=== PATIENT | male | born 1965 | race Caucasian/White ===

== ENCOUNTER 2016-04-14 10:37 | Outpatient (CLI) | payer OTHER | END 2016-04-14 20:23 | disposition home or self-care (01) | LOC: MLB 10:37 | PROVIDERS: ATTEND Family Medicine Geriatric Medicine | DX: Z13.228 Encounter for screening for other metabolic disorders (principal); M54.40 Lumbago with sciatica, unspecified side; Z13.220 Encounter for screening for lipoid disorders; Z13.0 Encounter for screening for diseases of the blood and blood-forming organs and certain disorders involving the immune mechanism; Z13.29 Encounter for screening for other suspected endocrine disorder ==

== ENCOUNTER 2016-06-05 02:16 | Emergency (ER) | payer OTHER ==
[~2016-06-05] VITALS: Ht 177.8 cm; Wt 76.2 kg
[2016-06-05 02:35] VITALS: BP 151/94
--- NOTE | 2016-06-05 02:49 | NUR ---
PATIENT AMBULATED TO ER OF1.
--- NOTE | 2016-06-05 02:49 | NUR ---
50Y M BIB SELF C/O LEFT EAR PAIN X 3 MONTH; PT STATES HIS EAR HAS BEEN PLUGGED X 3 MONTHS, SO PT GOT EAR IRRIGATION FROM [facility] BUT GOT NO RELIEF HX: NONE SULFA ALLERGIES
--- NOTE | 2016-06-05 02:50 | NUR ---
Patient being evaluated by physician.
--- NOTE | 2016-06-05 03:10 | NUR ---
PATIENT AMBULATED TO ER BED 4.
--- NOTE | 2016-06-05 03:54 | NUR ---
Patient discharged with v/s stable. Written and verbal after care instructions given and explained. Patient verbalized understanding. Ambulatory with steady gait. All questions addressed prior to discharge. Advised to follow up with PMD.
[2016-06-05 03:55] VITALS: BP 148/92
== END 2016-06-05 03:54 | disposition home or self-care (01) ==
LOC: EEVIPCON 02:16 → MED 02:16
DX: H61.22 Impacted cerumen, left ear (principal); R03.0 Elevated blood-pressure reading, without diagnosis of hypertension; Z88.2 Allergy status to sulfonamides; Z88.8 Allergy status to other drugs, medicaments and biological substances

== ENCOUNTER 2016-10-05 12:09 | Outpatient (CLI) | payer OTHER ==
[2016-10-05 13:01] LABS: ALBUMIN 4.1 g/dL (3.4-5.0); ANION GAP 13.5 (8-16); CARBON DIOXIDE 23.8 mmol/L (21-32); CHOL/HDL RATIO 3.7 (1-4.5); CREATININE 0.8 mg/dL (0.7-1.3); POTASSIUM 4.3 mmol/L (3.5-5.1); TOTAL BILIRUBIN 0.6 mg/dL (0.0-1.0)
== END 2016-10-05 21:22 | disposition home or self-care (01) ==
LOC: MLB 12:09
PROVIDERS: ATTEND Family Medicine Geriatric Medicine
DX: E78.00 Pure hypercholesterolemia, unspecified (principal); Z80.42 Family history of malignant neoplasm of prostate
CPT/HCPCS: 36415; 80053; 84154

== ENCOUNTER 2016-12-09 11:04 | Outpatient (CLI) | payer OTHER | END 2016-12-09 19:23 | disposition home or self-care (01) | LOC: MLB 11:04 | DX: S62.611D Displaced fracture of proximal phalanx of left index finger, subsequent encounter for fracture with routine healing (principal); X58.XXXD Exposure to other specified factors, subsequent encounter | CPT/HCPCS: 73140 ==

== ENCOUNTER 2017-11-25 10:27 | Outpatient (CLI) | payer OTHER ==
[2017-11-25 10:56] LABS: APPEARANCE,URINE CLEAR (CLEAR); BASOPHILS # (AUTO) 0.1 K/uL (0.00-0.22); BASOPHILS % (AUTO) 2.4 % (0.0-2.0); COLOR,URINE YELLOW (YELLOW); EOSINOPHILS # (AUTO) 0.1 K/uL (0-0.4); EOSINOPHILS % (AUTO) 1.5 % (0.0-4.0); HEMATOCRIT 42.4 % (36-52); HEMOGLOBIN 14.1 g/dL (12.0-18.0); LYMPHOCYTES # (AUTO) 1.6 K/uL (2.0-11.5); LYMPHOCYTES % (AUTO) 40.2 % (20.5-51.1); MEAN CORPUSCULAR HEMOGLOBIN 29 pg (27-31); MEAN CORPUSCULAR HGB CONC 33 g/dL (33-37); MEAN CORPUSCULAR VOLUME 86.9 fL (80-94); MONOCYTES # (AUTO) 0.4 K/uL (0.8-1.0); MONOCYTES % (AUTO) 9.2 % (1.7-9.3); NEUTROPHILS # (AUTO) 1.9 K/uL (1.8-7.7); NEUTROPHILS % (AUTO) 46.7 % (42.2-75.2); PLATELET COUNT (AUTO) 177 K/uL (140-450); RED BLOOD CELL COUNT(AUTO) 4.88 MIL/uL (4.20-6.10); RED CELL DISTRIBUTION WIDTH 14.9 % (11.6-13.7); WHITE BLOOD COUNT (AUTO) 4.1 K/uL (4.8-10.8)
[2017-11-25 10:57] LABS: BILIRUBIN,URINE NEGATIVE (NEGATIVE); BLOOD, URINE NEGATIVE (NEGATIVE); LEUKOCYTE ESTERASE ,URINE NEGATIVE (NEGATIVE); NITRITE, URINE NEGATIVE (NEGATIVE); UGLUCOSE NEGATIVE (NEGATIVE)
[2017-11-25 11:23] LABS: ALBUMIN 4.2 g/dL (3.4-5.0); ANION GAP 13.4 (8-16); CARBON DIOXIDE 28.2 mmol/L (21-32); CHOL/HDL RATIO 3.2 (1-4.5); CREATININE 0.9 mg/dL (0.7-1.3); FREE T4 (FREE THYROXINE) 1.2 ng/dL (0.76-1.46); POTASSIUM 3.6 mmol/L (3.5-5.1); THYROID STIMULATING HORMONE 2.62 uIU/mL (0.34-3.74); TOTAL BILIRUBIN 0.7 mg/dL (0.0-1.0)
== END 2017-11-25 21:08 | disposition home or self-care (01) ==
LOC: MLB 10:27
PROVIDERS: ATTEND Family Medicine Geriatric Medicine
DX: Z13.29 Encounter for screening for other suspected endocrine disorder (principal); Z13.228 Encounter for screening for other metabolic disorders; Z13.0 Encounter for screening for diseases of the blood and blood-forming organs and certain disorders involving the immune mechanism; E78.00 Pure hypercholesterolemia, unspecified; Z88.2 Allergy status to sulfonamides; Z88.8 Allergy status to other drugs, medicaments and biological substances
CPT/HCPCS: 36415; 80053; 81003; 82306; 83036; 84154; 84439; 84443; 85025

== ENCOUNTER 2018-07-15 08:14 | Emergency (ER) | payer OTHER ==
[~2018-07-15] VITALS: Ht 177.8 cm; Wt 74.8 kg
[2018-07-15 08:32] VITALS: BP 135/70
--- NOTE | 2018-07-15 08:45 | NUR ---
BIB SELF. AAO X4 PT C/O SWELLING AND ACHING ABOVE RIGHT EYE LID FOR 8 MONTHS ON AND OFF. PT HAD MRI THREE WEEKS AGO IN [facility]. PAIN SCALE 5/10. REDNESS WITH MILD SWELLING TO R EYELID. PT DENIES BLURRED VISION, N/V, DIZZINESS, FEVER. PERRLA BRISK 3MM. FULL CLEAR SPEECH. EQUAL FARAZ UPPER AND LOWER EXTREMITIES. STEADY GAIT.
--- NOTE | 2018-07-15 08:45 | NUR ---
Patient ambulated to bed 9. RN evaluating patient at bedside.
--- NOTE | 2018-07-15 09:06 | NUR ---
Dr. Cleaning evaluating patient at bedside.
[2018-07-15 09:55] VITALS: BP 138/68
--- NOTE | 2018-07-15 09:55 | NUR ---
Patient discharged with v/s stable. Written and verbal after care instructions given and explained. Patient alert, oriented and verbalized understanding of instructions. Ambulatory with steady gait. All questions addressed prior to discharge. ID band removed. Patient advised to follow up with PMD. Rx of Doxycycline, Nizoral 2% shampoo, Prednisone given. Patient educated on indication of medication including possible reaction and side effects. Opportunity to ask questions provided and answered.
== END 2018-07-15 09:55 | disposition home or self-care (01) ==
LOC: MED 08:14
DX: L73.9 Follicular disorder, unspecified (principal); Z88.2 Allergy status to sulfonamides; Z88.8 Allergy status to other drugs, medicaments and biological substances
CPT/HCPCS: 99283

== ENCOUNTER 2019-02-16 11:14 | Outpatient (CLI) | payer OTHER ==
[2019-02-16 12:47] LABS: APPEARANCE,URINE CLEAR (CLEAR); BILIRUBIN,URINE NEGATIVE (NEGATIVE); BLOOD, URINE TRACE-I (NEGATIVE); COLOR,URINE YELLOW (YELLOW); LEUKOCYTE ESTERASE ,URINE NEGATIVE (NEGATIVE); NITRITE, URINE NEGATIVE (NEGATIVE); PH,URINE 8.5 (5.0-9.0); UGLUCOSE NEGATIVE (NEGATIVE)
[2019-02-16 12:55] LABS: BASOPHILS % (AUTO) 0.8 % (0.0-2.0); EOSINOPHILS # (AUTO) 0.1 K/uL (0-0.4); EOSINOPHILS % (AUTO) 1.6 % (0.0-4.0); HEMATOCRIT 42.2 % (36-52); LYMPHOCYTES # (AUTO) 1.8 K/uL (2.0-11.5); LYMPHOCYTES % (AUTO) 43.8 % (20.5-51.1); MEAN CORPUSCULAR HEMOGLOBIN 29 pg (27-31); MEAN CORPUSCULAR HGB CONC 33 g/dL (33-37); MEAN CORPUSCULAR VOLUME 88.9 fL (80-94); MONOCYTES # (AUTO) 0.4 K/uL (0.8-1.0); MONOCYTES % (AUTO) 10.3 % (1.7-9.3); NEUTROPHILS # (AUTO) 1.8 K/uL (1.8-7.7); NEUTROPHILS % (AUTO) 43.5 % (42.2-75.2); PLATELET COUNT (AUTO) 187 K/uL (140-450); RED BLOOD CELL COUNT(AUTO) 4.74 MIL/uL (4.20-6.10); RED CELL DISTRIBUTION WIDTH 14.7 % (11.6-13.7); WHITE BLOOD COUNT (AUTO) 4.1 K/uL (4.8-10.8)
[2019-02-16 12:58] LABS: HYALINE CASTS, URINE 0-10 /LPF (None Seen); RBC,URINE 0 /HPF (0-5); WBC,URINE 0 /HPF (0-5)
[2019-02-16 13:16] LABS: ALBUMIN 4.1 g/dL (3.4-5.0); ANION GAP 12.1 (8-16); CARBON DIOXIDE 27.9 mmol/L (21-32); CHOL/HDL RATIO 3.7 (1-4.5); CREATININE 0.9 mg/dL (0.7-1.3); THYROID STIMULATING HORMONE 4.34 uIU/mL (0.34-3.74); TOTAL BILIRUBIN 0.8 mg/dL (0.0-1.0)
== END 2019-02-16 21:22 | disposition home or self-care (01) ==
LOC: MLB 11:14
DX: Z13.228 Encounter for screening for other metabolic disorders (principal); N62 Hypertrophy of breast; E78.00 Pure hypercholesterolemia, unspecified; N63.10 Unspecified lump in the right breast, unspecified quadrant; Z13.21 Encounter for screening for nutritional disorder; Z13.1 Encounter for screening for diabetes mellitus; Z80.42 Family history of malignant neoplasm of prostate; Z13.0 Encounter for screening for diseases of the blood and blood-forming organs and certain disorders involving the immune mechanism
CPT/HCPCS: 36415; 76641; 80053; 80061; 81001; 82306; 83036; 84154; 84436; 84443; 85025; 87086; Q0092

== ENCOUNTER 2019-02-21 08:11 | Emergency (ER) | payer OTHER ==
[~2019-02-21] VITALS: Ht 177.8 cm; Wt 72.6 kg
[2019-02-21 08:17] VITALS: BP 143/65
--- NOTE | 2019-02-21 08:53 | NUR ---
DR MORGAN AT BEDSIDE
--- NOTE | 2019-02-21 09:17 | NUR ---
C/O 2 PALPABLE MASSES TO RIGHT CHEST & 6/10 PAIN X 8 MONTHS. PER PATIENT, HE HAD LABS AND US DONE APPROX 1 WEEK AGO, HAS NOT RECEIVED RESULTS. STATES MASS IS GROWING AND PAIN IS WORSENING. NO DISTRESS NOTED. VS STABLE. PT ALERT AND AWAKE, AMBUALTORY WITH STEADY GAIT. MED HX: DENIES
[2019-02-21 10:15] VITALS: BP 143/65
== END 2019-02-21 10:16 | disposition home or self-care (01) ==
LOC: MED 08:11
DX: N62 Hypertrophy of breast (principal); Z88.2 Allergy status to sulfonamides; Z88.8 Allergy status to other drugs, medicaments and biological substances
CPT/HCPCS: 99281

== ENCOUNTER 2019-10-19 08:48 | Emergency (ER) | payer OTHER ==
[~2019-10-19] VITALS: Ht 177.8 cm; Wt 74.5 kg
[2019-10-19 08:55] VITALS: BP 149/89
--- NOTE | 2019-10-19 08:59 | NUR ---
PATIENT AMBULATED TO ER BED 2.
--- NOTE | 2019-10-19 09:10 | NUR ---
53 YEAR OLD MALE COMPLAINS OF LEFT WRIST PAIN AFTER FALLING ON IT SINCE 7PM YESTERDAY. PT STATES NO ROM. LEFT WRIST SWOLLEN, CAP REFILL < 3 SEC, RADIAL PULSE +3, WARM, 10/10 PAIN. PT AOX4, BREATHING EVEN AND UNLABORED, SKIN WARM AND DRY. BED IN LOWEST POSITION, LOCKED, BED RAIL UPX1. PMH - SCIATICA (LUMBAR) ALLERGIES - SULFAS
--- NOTE | 2019-10-19 09:24 | NUR ---
rad at bedside
[2019-10-19] MEDS ORDERED: LIDOCAINE 2% 1000 MG/50 ML VIAL INJ ONE ×2 (10:12→10:15)
--- NOTE | 2019-10-19 10:25 | NUR ---
ERMD AT BEDSIDE FOR PROCEDURE
--- NOTE | 2019-10-19 10:35 | NUR ---
4 incho orthoglass used for posterior long arm splint. PMSC's assessed and WNL. Patient placed in a sling adjusted appropriately. Tolerated splint and sling well
[2019-10-19 11:20] VITALS: BP 141/83
--- NOTE | 2019-10-19 11:20 | NUR ---
Patient discharged with v/s stable. Written and verbal after care instructions about colles fracture given and explained. Patient alert, oriented and verbalized understanding of instructions. Ambulatory with steady gait. All questions addressed prior to discharge. ID band removed. Patient advised to follow up with PMD. Rx of tramadol and motrin given. Patient educated on indication of medication including possible reaction and side effects. Opportunity to ask questions provided and answered. Patient given excuse for work, understands to follow with primary care Dr regarding cast placement. Pt given CD of Xray.
== END 2019-10-19 11:20 | disposition home or self-care (01) ==
LOC: MED 08:48
DX: S52.532A Colles' fracture of left radius, initial encounter for closed fracture (principal); R03.0 Elevated blood-pressure reading, without diagnosis of hypertension; M54.30 Sciatica, unspecified side; L23.2 Allergic contact dermatitis due to cosmetics; Z88.2 Allergy status to sulfonamides; Y93.89 Activity, other specified; W51.XXXA Accidental striking against or bumped into by another person, initial encounter; Y92.89 Other specified places as the place of occurrence of the external cause; Y99.8 Other external cause status
CPT/HCPCS: 25605; 73110; 99284; J2001; Q0092

== ENCOUNTER 2020-01-22 08:37 | Outpatient (CLI) | payer OTHER | END 2020-01-22 22:20 | disposition home or self-care (01) | LOC: MCA 08:37 | DX: Z01.818 Encounter for other preprocedural examination (principal) | CPT/HCPCS: 93005 ==

== ENCOUNTER 2021-06-03 15:35 | Emergency (ER) | payer OTHER ==
[~2021-06-03] VITALS: Ht 177.8 cm; Wt 72.6 kg
[2021-06-03 15:50] VITALS: BP 157/103
[2021-06-03] MEDS: KETOROLAC 60 MG/2 ML VIAL IM ONE (16:43)
[2021-06-03] MEDS ORDERED: IBUP-2213 PO (16:52)
[2021-06-03] MEDS ORDERED: ACET-8386 PO (16:52)
[2021-06-03 17:02] VITALS: BP 157/103
== END 2021-06-03 17:02 | disposition home or self-care (01) ==
LOC: MED 15:35
DX: M25.532 Pain in left wrist (principal); R20.0 Anesthesia of skin; Z98.890 Other specified postprocedural states; Z88.8 Allergy status to other drugs, medicaments and biological substances; Z88.2 Allergy status to sulfonamides
CPT/HCPCS: 96372; 99283; J1885

== ENCOUNTER 2022-07-03 08:20 | Outpatient (CLI) | payer OTHER ==
[~2022-07-03 08:20] MED LIST: ACET-8905 PO; IBUP-2213 PO
[2022-07-03 09:09] LABS: APPEARANCE,URINE CLEAR (CLEAR); BILIRUBIN,URINE NEGATIVE (NEGATIVE); BLOOD, URINE NEGATIVE (NEGATIVE); COLOR,URINE YELLOW (YELLOW); LEUKOCYTE ESTERASE ,URINE NEGATIVE (NEGATIVE); NITRITE, URINE NEGATIVE (NEGATIVE); UGLUCOSE NEGATIVE (NEGATIVE)
[2022-07-03 09:12] LABS: BASOPHILS # (AUTO) 0.1 K/uL (0.00-0.22); BASOPHILS % (AUTO) 1.4 % (0.0-2.0); EOSINOPHILS # (AUTO) 0.1 K/uL (0-0.4); EOSINOPHILS % (AUTO) 2.2 % (0.0-4.0); HEMATOCRIT 37.7 % (36-52); HEMOGLOBIN 12.5 g/dL (12.0-18.0); LYMPHOCYTES # (AUTO) 1.5 K/uL (2.0-11.5); LYMPHOCYTES % (AUTO) 31.1 % (20.5-51.1); MEAN CORPUSCULAR HEMOGLOBIN 29 pg (27-31); MEAN CORPUSCULAR HGB CONC 33 g/dL (33-37); MEAN CORPUSCULAR VOLUME 86.3 fL (80-94); MONOCYTES # (AUTO) 0.4 K/uL (0.8-1.0); MONOCYTES % (AUTO) 7.7 % (1.7-9.3); NEUTROPHILS # (AUTO) 2.7 K/uL (1.8-7.7); NEUTROPHILS % (AUTO) 57.6 % (42.2-75.2); PLATELET COUNT (AUTO) 196 K/uL (140-450); RED BLOOD CELL COUNT(AUTO) 4.36 MIL/uL (4.20-6.10); RED CELL DISTRIBUTION WIDTH 15.7 % (11.6-13.7); WHITE BLOOD COUNT (AUTO) 4.7 K/uL (4.8-10.8)
[2022-07-03 09:32] LABS: CHOL/HDL RATIO 3.1 (1-4.5); THYROID STIMULATING HORMONE 1.46 uIU/mL (0.34-3.74)
[2022-07-05 07:06] LABS: T4 FREE (DIRECT) 1.46 ng/dL (0.82-1.77)
== END 2022-07-03 20:41 | disposition home or self-care (01) ==
LOC: MLB 08:20
PROVIDERS: ATTEND Family Medicine Geriatric Medicine
DX: Z13.228 Encounter for screening for other metabolic disorders (principal); Z13.29 Encounter for screening for other suspected endocrine disorder; Z12.5 Encounter for screening for malignant neoplasm of prostate; Z13.1 Encounter for screening for diabetes mellitus; Z13.0 Encounter for screening for diseases of the blood and blood-forming organs and certain disorders involving the immune mechanism; E78.00 Pure hypercholesterolemia, unspecified
CPT/HCPCS: 36415; 81003; 83036; 84154; 84439; 84443; 85025